=== PATIENT | female | born 1945 | race Hispanic/Latino ===

== ENCOUNTER 2023-09-24 07:28 | Day surgery (SDC) | payer MEDICARE ==
[2023-09-20 10:41] LABS: BASOPHILS # (AUTO) 0.03 K/uL (0.00-0.20); BASOPHILS % (AUTO) 0.4 % (0.0-5.0); EOSINOPHILS # (AUTO) 0.17 K/uL (0.00-0.70); EOSINOPHILS % (AUTO) 2.5 % (0.0-8.0); HEMATOCRIT 43.3 % (36-48); IMMATURE GRANULOCYTE ABSOLUTE 0.02 K/uL (0-1); LYMPHOCYTES # (AUTO) 1.3 K/uL (1.0-4.8); MEAN CORPUSCULAR HEMOGLOBIN 27.7 pg (27.0-33.0); MEAN CORPUSCULAR HGB CONC 31.6 g/dL (32.0-36.0); MEAN CORPUSCULAR VOLUME 87.7 fL (79-99); MONOCYTES # (AUTO) 0.5 K/uL (0.1-1.0); MONOCYTES % (AUTO) 6.7 % (3.0-13.0); NEUTROPHILS # (AUTO) 4.7 K/uL (1.8-7.7); NEUTROPHILS % (AUTO) 70.1 % (40.0-77.0); PLATELET COUNT (AUTO) 192 K/uL (130-400); RED BLOOD CELL COUNT(AUTO) 4.94 MIL/uL (4.00-5.50); RED CELL DISTRIBUTION WIDTH 14.3 % (11.0-15.5); WHITE BLOOD COUNT (AUTO) 6.7 K/uL (4.8-10.8)
[2023-09-20 10:57] LABS: INR 0.98 (0.85-1.15); PROTHROMBIN TIME 11.4 SEC (9.6-11.6)
[2023-09-20 10:58] LABS: CREATININE 0.8 mg/dL (0.5-1.5); PARTIAL THROMBOPLASTIN TIME 29.9 SEC (26.3-35.5); POTASSIUM 4.6 mmol/L (3.5-5.1)
[2023-09-20 11:12] VITALS: BP 116/59; PULSE 64; RESP 17
[2023-09-20 13:04] LABS: ADD UA MICROSCOPIC YES; APPEARANCE,URINE CLEAR (CLEAR); BILIRUBIN,URINE NEGATIVE (NEGATIVE); COLOR,URINE LIGHT-YELLOW (YELLOW); GLUCOSE, URINE (UA) >=1000 mg/dL (NEGATIVE); KETONES,URINE NEGATIVE (NEGATIVE); LEUKOCYTE ESTERASE ,URINE NEGATIVE Leu/uL (NEGATIVE); NITRATE,URINE NEGATIVE (NEGATIVE); OCCULT BLOOD,URINE NEGATIVE (NEGATIVE); PROTEIN,URINE NEGATIVE (NEGATIVE); UROBILINOGEN,URINE 0.2 mg/dL (0.2-1.0)
[2023-09-20 13:21] LABS: RBC,URINE 0-1 /HPF (0-1); SQUAMOUS EPITHELIAL CELL,UR RARE /HPF (0-2)
[2023-09-24] VITALS (19 sets, daily range): BP systolic 112–148; BP diastolic 50–79; PULSE 71–90; RESP 12–20
[~2023-09-24] VITALS: Ht 152.4 cm; Wt 80.1 kg
[~2023-09-24 07:28] MED LIST: ACET-2743 PO; ALBU6.7H14 IH; ALEN70TA80 PO; CARV3.12 PO; CYAN100084 PO; DOCU100T PO; EMPA10TA PO; ERGO500093 PO; ESCI-8 PO; FLUT1BLS IH; FURO20TA4 PO; LORA10TA7 PO; MECL-302 PO; MIRA25TA PO; MONT-39 PO; Metformin PO; OLME20TA68 PO; PREG75CA76 PO; ROSU20TA23 PO; SITA100T12 PO
[2023-09-24] MEDS ORDERED: 0.9%NACL 1000ML 1,000 ML IV ONE (07:50)
[2023-09-24] MEDS: CEFAZOLIN SODIUM 2 GM VIAL ONE ×2 (08:34→09:42)
[2023-09-24] MEDS ORDERED: LIDOCAINE PF 100MG/5ML (2%) SYRINGE 5ML ONE (08:41)
[2023-09-24] MEDS ORDERED: DEXAMETHASONE SOD PHOSPHATE 10MG/ML 1ML VIAL ONE (08:41)
[2023-09-24] MEDS ORDERED: ONDANSETRON 4MG INJ ONE ×2 (08:41→11:45)
[2023-09-24] MEDS ORDERED: PROPOFOL 10 MG/ML 20ML VIAL IV ONE (08:41)
[2023-09-24] MEDS ORDERED: MIDAZOLAM HCL 1 MG/ML 2ML VIAL ONE (08:41)
[2023-09-24] MEDS ORDERED: ROCURONIUM 10MG/1ML SYR 10 MG/ML ML ONE ×2 (08:41→10:07)
[2023-09-24] MEDS ORDERED: FENTANYL CITRATE PF 50 MCG/1 ML 5ML AMP IV ONE (08:42)
[2023-09-24] MEDS ORDERED: BUPIVACAINE/PF 0.5% 30ML VIAL ONE (08:50)
[2023-09-24] MEDS ORDERED: EPHEDRINE SULFATE 50 MG/ML AMPULE ONE (09:47)
[2023-09-24] MEDS ORDERED: NEOSTIGMINE 5MG/5ML SYR IV ONE (11:18)
[2023-09-24] MEDS ORDERED: GLYCOPYRROLATE 1 MG/5 ML SYRINGE ONE (11:18)
[2023-09-24] MEDS ORDERED: MEPERIDINE-PF 25 MG/ML SYG ONE ×2 (11:45→12:01)
[2023-09-24] MEDS ORDERED: KETOROLAC 15MG/ML VIAL (15MG/ML) ONE (11:45)
[2023-09-24] MEDS ORDERED: ACETAMINOPHEN WITH CODEINE 1 TAB TAB ONE (13:44)
== END 2023-09-24 13:55 | disposition short-term general hospital (02) ==
LOC: DAH 07:28
PROVIDERS: ATTEND Student in an Organized Health Care Education/Training Program
DX: K43.6 Other and unspecified ventral hernia with obstruction, without gangrene (principal); K42.9 Umbilical hernia without obstruction or gangrene; I45.10 Unspecified right bundle-branch block; I12.9 Hypertensive chronic kidney disease with stage 1 through stage 4 chronic kidney disease, or unspecified chronic kidney disease; N18.2 Chronic kidney disease, stage 2 (mild); E11.22 Type 2 diabetes mellitus with diabetic chronic kidney disease; E11.40 Type 2 diabetes mellitus with diabetic neuropathy, unspecified; M19.90 Unspecified osteoarthritis, unspecified site; E78.5 Hyperlipidemia, unspecified; E03.9 Hypothyroidism, unspecified; Z79.01 Long term (current) use of anticoagulants; Z79.899 Other long term (current) drug therapy; E66.9 Obesity, unspecified; Z68.34 Body mass index [BMI] 34.0-34.9, adult; Z90.49 Acquired absence of other specified parts of digestive tract; Z90.710 Acquired absence of both cervix and uterus; Z98.42 Cataract extraction status, left eye; Z98.41 Cataract extraction status, right eye
CPT/HCPCS: 80048; 85025; 85610; 85730; 81001; 36415; 93005; 49594; 82948 ×2; A6260; A4600; A4663; J7030 ×2; J3010; J3490 ×2; J1100; J2710; J2001; J2250; J2704; J2405 ×2; J0665; J2175 ×2; J1885; J0690; G0168; C1781; A4215; A4223; A4222; A4221

== ENCOUNTER 2025-05-01 11:51 | Emergency (ER) | payer MEDICARE ==
[~2025-05-01] VITALS: Ht 147.3 cm; Wt 77.1 kg
--- NOTE | 2025-05-01 12:02 | ERN ---
ED Note History of Present Illness Stated Complaint: ABDOMINAL PAIN Chief Complaint: Abdominal Pain Time Seen by MD: 11:53 Dictation: PATIENT IS A 79-YEAR-OLD FEMALE COMING IN WITH COMPLAINTS OF CRAMPING BURNING EPIGASTRIC PAIN WITHOUT NAUSEA VOMITING OR DIARRHEA ONSET THREE DAYS PRIOR TO ARRIVAL. NO FEVER NO CHILLS. SHE DENIES CHEST PAIN BACK PAIN NO SOB TOE NO ARM PAIN NO JAW PAIN. STATES SHE HAS A DIABETIC HOWEVER LAST BLOOD SUGAR CHECKED WAS THREE DAYS AGO. SECOND COMPLAINT IS BILATERAL LEG CRAMPING WORSE ON THE LEFT ONSET 2-3 DAYS PRIOR TO ARRIVAL. SHE HAS NOT BEEN TO SEE HER PRIMARY CARE DOCTOR IN [facility] Allergies: Coded Allergies: aspirin (Unverified Allergy, Severe, 04/30/15) RASH naproxen (Unverified Allergy, Intermediate, 04/30/15) RASH glucosamine (Unverified Allergy, Unknown, 04/30/15) ibuprofen (Unverified Adverse Reaction, Severe, 04/30/15) RASH shrimp (Unverified Adverse Reaction, Severe, 04/30/15) Home Meds Reported Medications Fluticasone/Vilanterol (Breo Ellipta 200-25 Mcg INH) 200 Mcg-25 Mcg/Dose Blst.w.dev, 1 EACH IH AM 09/20/23 Pregabalin (Pregabalin) 75 Mg Capsule, 75 MG PO BID, CAP 09/20/23 Escitalopram Oxalate (Escitalopram Oxalate) 10 Mg Tablet, 10 MG PO HS, TAB 09/20/23 Empagliflozin (Jardiance) 10 Mg Tablet, 10 MG PO AM, TAB 09/20/23 Cyanocobalamin (Vitamin B-12) (B-12) 1,000 Mcg Tablet.er, 1000 MCG PO AM, TAB 09/20/23 Docusate Sodium (Docusate Sodium) 100 Mg Tablet, 100 MG PO AD PRN for constipation, TAB 09/20/23 Olmesartan Medoxomil (Olmesartan Medoxomil) 20 Mg Tablet, 20 MG PO AM, TAB 09/20/23 Mirabegron (Myrbetriq) 25 Mg Tab.er.24h, 25 MG PO AM, TAB 09/20/23 Albuterol Sulfate (Proventil Hfa) 90 Mcg Hfa.aer.ad, 6.7 GM IH AD PRN for SHORTNESS OF BREATH 09/20/23 Acetaminophen (Tylenol Extra Strength) 500 Mg Tablet, 500 MG PO AD PRN for PAIN, TAB 09/20/23 Furosemide (Furosemide) 20 Mg Tablet, 20 MG PO AM, TAB 09/20/23 Meclizine HCl (Meclizine HCl) 25 Mg Tablet, 25 MG PO AD PRN for dizziness, TAB 09/20/23 Ergocalciferol (Vitamin D2) (Vitamin D2) 1,250 Mcg (36797 Unit) Capsule, 1250 MCG PO QWEEK, CAP 09/20/23 Rosuvastatin Calcium (Crestor) 20 Mg Tablet, 40 MG PO AM, TAB 04/30/15 Alendronate Sodium (Alendronate Sodium) 70 Mg Tablet, 70 MG PO MONDAYS, TAB 04/30/15 Sitagliptin Phosphate (Januvia) 100 Mg Tablet, 100 MG PO DAILY, TAB 04/30/15 [Metformin] No Conflict Check, 500 MG PO BID 04/30/15 Loratadine (Loratadine) 10 Mg Tablet, 10 MG PO DAILY, TAB 04/30/15 Carvedilol (Carvedilol) 3.125 Mg Tablet, 3.125 MG PO BID, TAB 04/30/15 Montelukast Sodium (Montelukast Sodium) 10 Mg Tablet, 10 MG PO HS, TAB 04/30/15 Past Medical History Past Medical History: Arthritis, Asthma, COPD, Diabetes-Type II, High Cholesterol, Hypertension Additional Past Medical Hx: EMPHYSEMA Surgical History: Other History: Not Applicable RN Note Reviewed/Agreed w/PFSH: Yes Review of System Dictation CONSTITUTIONAL: NEGATIVE EXCEPT FOR HPI HEAD/FACE: NEGATIVE EXCEPT FOR HPI EENT: NEGATIVE EXCEPT FOR HPI RESPIRATORY: NEGATIVE EXCEPT FOR HPI GASTROINTESTINAL/ABDOMINAL: NEGATIVE EXCEPT FOR HPI GASTRIC PAIN BURNING WITH NAUSEA GENITOURINARY: NEGATIVE EXCEPT FOR HPI MUSCULOSKELETAL: NEGATIVE EXCEPT FOR HPI LEG CRAMPS BILATERALLY INTEGUMENTARY: NEGATIVE EXCEPT FOR HPI NEUROLOGICAL/PSYCH: NEGATIVE EXCEPT FOR HPI HEMATOLOGIC/LYMPHATIC: NEGATIVE EXCEPT FOR HPI ALL SYSTEMS NEGATIVE, EXCEPT NOTED ABOVE. 13 POINT REVIEW OF SYSTEMS ASSESSED AND ALL NEGATIVE EXCEPT FOR ABOVE. Initial Vital Sign VS Vital Signs Date Time Temp Pulse Resp B/P (MAP) Pulse Ox O2 Delivery O2 Flow Rate FiO2 05/01/25 11:53 97.9 65 20 127/52 98 Room Air 05/01/25 12:30 0 21 Physical Exam Dictation VITAL SIGNS REVIEWED GENERAL APPEARANCE: ALERT, ORIENTED X 3, MILD ACUTE DISTRESS, WELL DEVELOPED, NOURISHED. OBESE AND DECONDITIONED HEAD AND FACE: NON-TRAUMATIC. EYES: PERRL, PINK CONJUNCTIVAS, EYELID NO TRAUMA, ANTERIOR CHAMBER WITH ARCUS S ENILIS. EARS: PINNAS INTACT AND NO SIGNS OF TRAUMA OR ERYTHEMA EAR CANALS CLEAR AND NO DISCHARGE TM NO ERYTHEMA NOSE: NO DISCHARGE, NO BLEEDING. OROPHARYNX: MOUTH NORMAL, TONGUE PINK, PHARYNX CLEAR,NO ERYTHEMA, TONSILS NO EXUDATES, NO ABSCESSES NOTED, MUCOUS MEMBRANE MOIST NECK: SUPPLE, NON-TENDER, NO THYROMEGALY, NO MASSES, NO JVD, NO BRUITS BREAST:DEFERRED CHEST:NO TENDERNESS, NO CREPITUS, NO PARADOXICAL MOVEMENT, NO RETRACTIONS LUNGS:CLEAR, WELL-VENTILATED, SYMMETRIC, NO RALES, NO WHEEZING, NO RHONCHI, NO STRIDOR, GOOD BREATH SOUNDS BILATERALLY HEART: REGULAR RATE, REGULAR RHYTHM, NO MURMUR, NO GALLOPS VASCULAR: NO PERIPHERAL EDEMA, ABDOMEN: SOFT, POSITIVE BOWEL SOUNDS, NONDISTENDED, NO GUARDING, EPIGASTRIC TENDERNESS WITH PALPATION, NO REBOUND, NO MASSES NO HEPATOMEGALY, NO SPLENOMEGALY, NO CALIX'S SIGN, NO HERNIAS. RECTAL: DEFERRED GENITAL: DEFERRED NEUROLOGICAL: NORMAL SPEECH, MOTOR FUNCTION INTACT, SENSORY FUNCTION INTACT MUSCULOSKELETAL: NECK NONTENDER, FULL RANGE OF MOTION, BACK NONTENDER, FULL RANGE OF MOTION, EXTREMITIES: NONTENDER, FULL RANGE OF MOTION SKIN: COLOR PINK, DRY, NO TURGOR, NO RASH, NO LACERATIONS, NO ABRASIONS, NO CONTUSIONS. LYMPHATIC: DEFERRED Results (Laboratory/Radiology) Laboratory/Radiology Laboratory Tests Test 05/01/25 12:13 05/01/25 12:52 White Blood Count 7.2 K/uL (4.8-10.8) Red Blood Count 4.67 MIL/uL (4.00-5.50) Hemoglobin 12.8 g/dL (12.0-16.0) Hematocrit 39.7 % (36-48) Mean Corpuscular Volume 85.0 fL (79-99) Mean Corpuscular Hemoglobin 27.4 pg (27.0-33.0) Mean Corpuscular Hemoglobin Concent 32.2 g/dL (32.0-36.0) Red Cell Distribution Width 14.6 % (11.0-15.5) Platelet Count 210 K/uL (130-400) Mean Platelet Volume 11.0 fL (7.5-10.5) H Immature Granulocyte % (Auto) 0.3 % (0-1) Neutrophils (%) (Auto) 69.8 % (40.0-77.0) Lymphocytes (%) (Auto) 20.9 % (21.0-51.0) L Monocytes (%) (Auto) 6.3 % (3.0-13.0) Eosinophils (%) (Auto) 2.1 % (0.0-8.0) Basophils (%) (Auto) 0.6 % (0.0-5.0) Neutrophils # (Auto) 5.0 K/uL (1.8-7.7) Lymphocytes # (Auto) 1.5 K/uL (1.0-4.8) Monocytes # (Auto) 0.5 K/uL (0.1-1.0) Eosinophils # (Auto) 0.15 K/uL (0.00-0.70) Basophils # (Auto) 0.04 K/uL (0.00-0.20) Absolute Immature Granulocyte (auto 0.02 K/uL (0-1) Nucleated Red Blood Cells 0.0 % (0.0-0.19) Sodium Level 144 mmol/L (136-145) Potassium Level 4.2 mmol/L (3.5-5.1) Chloride Level 105 mmol/L (101-111) Carbon Dioxide Level 27 mmol/L (21-32) Blood Urea Nitrogen 13 mg/dL (7-18) Creatinine 0.7 mg/dL (0.5-1.0) Glomerular Filtration Rate Calc 88 mL/min (>90) Random Glucose 97 mg/dL (70-105) Total Calcium 10.0 mg/dL (8.5-10.1) Magnesium Level 1.90 mg/dL (1.80-2.40) Troponin I High Sensitivity 5 ng/L (4-50) Lipase 17 U/L (16-77) Urine Color LIGHT-YELLOW (YELLOW) Urine Appearance CLEAR (CLEAR) Urine pH 5.5 (5.0-8.0) Urine Specific [place] 1.013 (1.001-1.031) Urine Protein NEGATIVE mg/dL (NEGATIVE) Urine Glucose (UA) >=1000 mg/dL (NEGATIVE) H Urine Ketones NEGATIVE mg/dL (NEGATIVE) Urine Occult Blood NEGATIVE (NEGATIVE) Urine Nitrate NEGATIVE (NEGATIVE) Urine Bilirubin NEGATIVE mg/dL (NEGATIVE) Urine Urobilinogen 0.2 mg/dL (0.2-1.0) Urine Leukocyte Esterase 75 Av/uL (NEGATIVE) H Urine RBC 2-5 /HPF (0-1) H Urine WBC 6-10 /HPF (0-1) H Urine Squamous Epithelial Cells /HPF (0-2) Urine Bacteria None Seen /HPF (None Seen) Labs Reviewed?: Yes EKG Comment: EKG SINUS RHYTHM FIRST-DEGREE AV BLOCK. RATE 63/RIGHT BUNDLE BRANCH BLOCK. ED Course ED Course Orders Procedure Category Date Status Time Magnesium LAB 05/01/25 Complete 11:59 Cbc With Differential LAB 05/01/25 Complete 11:59 Troponin I High LAB 05/01/25 Complete Sensitivity 11:59 Urinalysis Profile LAB 05/01/25 Complete 11:59 12 Lead Ekg Tracing- EKG 05/01/25 Complete Technical 11:59 Famotidine 20mg Tab PHA 05/01/25 Complete (Pepcid 20mg Tab) 12:00 Lipase LAB 05/01/25 Complete 11:59 Basic Metabolic Panel LAB 05/01/25 Complete 11:59 Lidocaine Hcl 2% PHA 05/01/25 Complete Viscous (Lidocaine Hcl 13:30 Mag/Alum/Simeth 30ml PHA 05/01/25 Complete (Maalox Plus 30ml) 13:30 Dicyclomine Hcl PHA 05/01/25 Complete (Bentyl 10mg/5ml 13:30 Culture Urine ALFREDA 05/01/25 In Process 13:37 Current Medications Medications (Trade) Dose Ordered Sig/Mario Route PRN Reason Start Time Stop Time Status Last Admin Dose Admin Al Hydroxide/Mg Hydroxide (MAALox PLUS 30ML) 30 ml ONCE ONCE PO 05/01/25 13:30 05/01/25 13:31 DC Dicyclomine HCl (Bentyl 10mg/5ml Syrup) 10 mg ONCE ONCE PO 05/01/25 13:30 05/01/25 13:31 DC Famotidine (Pepcid 20mg Tab) 20 mg ONCE ONCE PO 05/01/25 12:00 05/01/25 12:01 DC 05/01/25 12:45 Lidocaine HCl (Lidocaine HCl 2% Viscous) 10 ml ONCE ONCE PO 05/01/25 13:30 05/01/25 13:31 DC Vital Signs Date Time Temp Pulse Resp B/P (MAP) Pulse Ox O2 Delivery O2 Flow Rate FiO2 05/01/25 13:33 97.9 61 20 112/57 95 Room Air* 0 21 05/01/25 12:30 97.9 65 20 127/52 98 Room Air* 0 21 05/01/25 11:53 97.9 65 20 127/52 98 Room Air 1350/PATIENT STATES PAIN IS COMPLETELY RESOLVED AFTER PEPCID AND GI COCKTAIL. SHE IS AWARE THAT LABS ARE COMPLETELY NORMAL SHE WAS GIVEN BLAND DIETARY GUIDELINES WE WILL BE SENT HOME WITH THE OMEPRAZOLE AND CARAFATE AND TOLD TO SEE HER DOCTOR HEART Score Response (Comments) Value Age: > 65yrs (+2) 2 Risk Factors: 3+ risk factors (+2) 2 Initial Troponin: Normal limit (0) 0 Total 4 Medical Decision Making MDM MDM: DIFFERENTIAL DIAGNOSIS: GASTRITIS VERSUS GASTROENTERITIS/PANCREATITIS/ACS/AMI/ELECTROLYTE IMBALANCE/DEHYDRATION/UTI RATIONALE: TESTS CONSIDERED AND ORDERED SECONDARY TO SHARED DECISION MAKING INCLUDE: LABS/EKG PREVIOUS OUTSIDE RECORDS REVIEWED: OLD ER VISITS. RISK OF COMPLICATION AND/OR MORBIDITY OR MORTALITY OF PATIENT MANAGEMENT: NONE MEDICATIONS-PER MEDICATION RECONCILIATION NEED FOR HOSPITALIZATION: PATIENT DOES NOT MEET CRITERIA FOR HOSPITALIZATION. NO NEED FOR EMERGENCY MAJOR/MINOR SURGERY: NO THERE ARE NO SOCIAL CONCERNS WITH THIS PATIENT. PRESCRIPTION DRUG MANAGEMENT OMEPRAZOLE/CARAFATE PRESCRIPTIONS WILL INCLUDE SYMPTOMATIC CARE PATIENT'S PRIOR EXTERNAL MEDICAL RECORDS FROM OTHER ER VISITS WERE REVIEWED BY ME INDICATED. PRIOR TESTING AND RESULTS FROM PREVIOUS VISITS WERE REVIEWED. PRIOR TESTS WERE TAKEN INTO ACCOUNT WITH MEDICAL DECISION MAKING AND RESOURCE UTILIZATION, INDEPENDENT HISTORIAN/HISTORIANS WERE USED TO OBTAIN COMPLETE MEDICAL HISTORY. I INDEPENDENTLY INTERPRETED THE TEST THAT WERE PERFORMED, RESULTS WERE REVIEWED BY ME AND CONSIDERED FINDINGS ON RADIOLOGY IF ORDERED. MEDICAL MANAGEMENT AND EXAMINATION INTERPRETATION DISCUSSIONS WERE HAD BY ME WITH OTHER QUALIFIED HEALTHCARE PROFESSIONALS INDICATED FOR THE PATIENT'S CARE. DX & DISP Disposition: Discharge Departure Impression: Primary Impression: Acute gastritis Condition: Stable Scripts Omeprazole (Omeprazole) 40 Mg Capsule. 1 CAP PO DAILY for 30 Days, #30 CAP 0 Refills Prov: GINNY PHILLIPS ROUSTABOUT SUPERVISOR 05/01/25 Sucralfate (Carafate) 1 Gram Tablet 1 GM PO ACHS for 10 Days, #40 TAB Prov: GINNY PHILLIPS NP 05/01/25 Additional Instructions: FOLLOW-UP WITH PRIMARY CARE PROVIDER IN 1 TO 2 DAYS. TAKE MEDICATIONS DIRECTED HERE IN THE EMERGENCY ROOM. OKAY TO CONTINUE HOME MEDICATIONS UNLESS OTHERWISE DISCUSSED DURING YOUR VISIT IN THE EMERGENCY ROOM TODAY. RETURN TO YOUR NEAREST EMERGENCY ROOM IF SYMPTOMS WORSEN OR IF THERE IS NO IMPROVEMENT. CALL 911 IF YOU NEED IMMEDIATE ASSISTANCE. TAKE TYLENOL OR MOTRIN OV [id number] NEEDED AND IF NO CONTRAINDICATIONS ARE PRESENT. INCREASE ORAL HYDRATION. A WOUND CULTURE OR URINE CULTURE WAS ORDERED HERE IN THE EMERGENCY ROOM DEPARTMENT PLEASE FOLLOW-UP WITH PRIMARY CARE PROVIDER AND ADVISE THEM TO GET REPEAT PORTS FROM OUR FACILITY. IF YOU HAD ANY SHIRLENE WRAP/SPLINTS THAT WERE APPLIED HERE, PLEASE DO NOT REMOVE THEM UNTIL YOU SEE YOUR PRIMARY CARE OR SPECIALTY. TAKE CARAFATE AND OMEPRAZOLE DIRECTED. FOLLOW A BLAND DIET WITH WATER FOR FLUIDS ONLY. AVOID ICE TEA, COFFEE, ALCOHOL, SPICY FOODS, CITRUS FRUIT JUICE, OR BUBBLY DRINKS UNTIL CLEARED BY YOUR PRIMARY CARE DOCTOR Referrals: JIMBO CHA MD (PCP) Time of Disposition: 13:55 I have reviewed the case, and I agree with, Diagnosis and Plan GINNY PHILLIPS NP May 01, 2025 12:02
[2025-05-01 12:20] LABS: IMMATURE GRANULOCYTE ABSOLUTE 0.02 K/uL (0-1); NUCLEATED RED BLOOD CELLS 0.0 % (0.0-0.19); PLATELET COUNT (AUTO) 210 K/uL (130-400); RED BLOOD CELL COUNT(AUTO) 4.67 MIL/uL (4.00-5.50); RED CELL DISTRIBUTION WIDTH 14.6 % (11.0-15.5); WHITE BLOOD COUNT (AUTO) 7.2 K/uL (4.8-10.8)
[2025-05-01 12:30] LABS: CREATININE 0.7 mg/dL (0.5-1.0); GLOMERULAR FILTR. RATE CALC 88.0 mL/min (>90); GLUCOSE,RANDOM 97.0 mg/dL (70-105); SODIUM SERUM 144.0 mmol/L (136-145); UREA NITROGEN, BLOOD 13.0 mg/dL (7-18)
--- NOTE | 2025-05-01 12:32 | EKG ---
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
[2025-05-01] MEDS: FAMOTIDINE 20MG TAB PO ONE (12:45)
[2025-05-01 13:33] VITALS: BP 112/57; PULSE 61; RESP 20; TEMP 97.9; O2SAT 95
[2025-05-01 13:35] LABS: APPEARANCE,URINE CLEAR (CLEAR); GLUCOSE, URINE (UA) >=1000 mg/dL (NEGATIVE); LEUKOCYTE ESTERASE ,URINE 75 Leu/uL (NEGATIVE); NITRATE,URINE NEGATIVE (NEGATIVE); OCCULT BLOOD,URINE NEGATIVE (NEGATIVE)
[2025-05-01 13:36] LABS: ADD UA MICROSCOPIC YES
[2025-05-01] MEDS ORDERED: OMEP40CA21 PO (13:56)
[2025-05-01] MEDS ORDERED: SUCR1TAB28 PO (13:56)
[2025-05-01] MEDS: MAG/ALUM/SIMETH 30 ML UDCUP PO ONE (14:02)
[2025-05-01] MEDS: LIDOCAINE HCL 2% VISCOUS 15 ML UDCUP PO ONE (14:03)
[2025-05-01] MEDS: DICYCLOMINE HCL 10 MG/5 ML ML PO ONE (14:03)
--- NOTE | 2025-05-01 15:45 | NUR ---
DISCHARGE PAPERWORK HANDED TO DAUGHTER. PRESCRIPTION SENT TO HER PHARMACY. SHE TRANSFERRED TO WHEELCHAIR AND WAS TAKEN TO THE FRONT BY DECKHAND ENGINEER.
== END 2025-05-01 16:33 | disposition home or self-care (01) ==
LOC: EDH 11:51
DX: K29.00 Acute gastritis without bleeding (principal); E11.9 Type 2 diabetes mellitus without complications; E78.00 Pure hypercholesterolemia, unspecified; I10 Essential (primary) hypertension; J44.89 Other specified chronic obstructive pulmonary disease; M19.90 Unspecified osteoarthritis, unspecified site; Z79.51 Long term (current) use of inhaled steroids; Z79.84 Long term (current) use of oral hypoglycemic drugs; Z79.899 Other long term (current) drug therapy; Z88.6 Allergy status to analgesic agent
CPT/HCPCS: 36415; 80048; 81001; 83690; 83735; 84484; 85025; 87086; 93005; 99284